=== PATIENT | male | born 1970 | race Caucasian/White ===

== ENCOUNTER 2016-11-26 11:39 | Emergency (ER) | payer MEDICARE, MEDICAID ==
[~2016-11-26] VITALS: Ht 180.3 cm; Wt 110.0 kg
[2016-11-26 11:41] VITALS: BP 156/69
[2016-11-26] MEDS ORDERED: HYDR-4133 PO (11:44)
[2016-11-26] MEDS ORDERED: AMLO2.5T2 PO (11:44)
[2016-11-26] MEDS ORDERED: LORA0.5T2 PO (11:44)
[2016-11-26] MEDS ORDERED: CARB200T PO (11:44)
[2016-11-26] MEDS ORDERED: METF500T PO (11:44)
[2016-11-26] MEDS ORDERED: GLIP5TAB12 PO (11:44)
== END 2016-11-26 17:31 | disposition left against medical advice (07) ==
LOC: ER 13:13
DX: F28 Other psychotic disorder not due to a substance or known physiological condition (principal); E11.9 Type 2 diabetes mellitus without complications; I12.9 Hypertensive chronic kidney disease with stage 1 through stage 4 chronic kidney disease, or unspecified chronic kidney disease; N28.89 Other specified disorders of kidney and ureter

== ENCOUNTER 2016-11-27 00:35 | Emergency (ER) | payer MEDICARE, MEDICAID ==
[~2016-11-27] VITALS: Ht 180.3 cm; Wt 110.2 kg
[~2016-11-27 00:35] MED LIST: AMLO2.5T2 PO; CARB200T PO; GLIP5TAB12 PO; HYDR-4133 PO; LORA0.5T2 PO; METF500T PO
[2016-11-27 05:23] LABS: BASOPHILS % 0.9 % (0.0-2.0); HEMATOCRIT. 36.9 % (42.0-52.0); HEMOGLOBIN. 12.9 g/dL (14.0-18.0); LYMPHOCYTES % 28.7 % (20.0-50.0); MEAN CORPUSCULAR HGB CONC 34.9 g/dL (31.0-37.0); MEAN CORPUSCULAR VOLUME 91.6 fL (80.0-94.0); MEAN PLATELET VOLUME 8.2 fl (7.4-10.4); MONOCYTES % 9.7 % (2.0-8.0); NEUTROPHILS % 58.7 % (40.0-76.0); PLATELET 205 x1000/uL (130-400); RED BLOOD CELL COUNT 4.03 mill/uL (4.7-6.1); RED CELL DISTRIBUTION WIDTH 14.4 % (11.6-14.6); WHITE BLOOD COUNT 8.6 x1000/uL (4.5-11.0)
[2016-11-27 05:37] LABS: ACETAMINOPHEN < 2 ug/mL (10-30); ANION GAP 10; CALCIUM 8.6 mg/dL (8.5-10.1); CARBON DIOXIDE 29 mEq/L (21-32); CHLORIDE 104 mEq/L (98-107); ETHANOL BLOOD < 10 mg/dL; INDEX HEMOLYSI 2 (1-3); INDEX ICTERIC 1 (1-4); INDEX LIPEMIC 1 (1-3); UREA NITROGEN BLOOD 20 mg/dL (7-21); eGFR > 60 mL/min (>60)
[2016-11-27 07:12] LABS: *AMPHETAMINES SCREEN URINE NEGATIVE (NEGATIVE); *BARBITURATES SCREEN URINE NEGATIVE (NEGATIVE); *BENZODIAZEPINES SCREEN URINE NEGATIVE (NEGATIVE); *COCAINE SCREEN URINE NEGATIVE (NEGATIVE); CANNABINOID URINE SCREEN NEGATIVE (NEGATIVE); ECSTASY MDMA SCREEN URINE NEGATIVE (NEGATIVE); METHADONE URINE SCREEN NEGATIVE (NEGATIVE); OPIATES URINE SCREEN NEGATIVE (NEGATIVE); PHENCYCLIDINE URINE SCREEN NEGATIVE (NEGATIVE)
[2016-11-27 12:34] VITALS: BP 120/88
== END 2016-11-27 14:25 ==
LOC: ER 00:36
DX: F20.9 Schizophrenia, unspecified (principal); R45.851 Suicidal ideations; I10 Essential (primary) hypertension; E11.9 Type 2 diabetes mellitus without complications; F17.200 Nicotine dependence, unspecified, uncomplicated; Z88.8 Allergy status to other drugs, medicaments and biological substances; Z79.899 Other long term (current) drug therapy
CPT/HCPCS: 36415; 80048; 80305; 80307; 80329; 85025; 99285; G0482

== ENCOUNTER 2017-11-22 11:50 | Emergency (ER) | payer OTHER, MEDICAID ==
[~2017-11-22] VITALS: Ht 172.7 cm; Wt 90.0 kg
[2017-11-22] MEDS ORDERED: LORAZEPAM 1MG TABLET PO ONE (12:15)
[2017-11-22] MEDS ORDERED: OLANZAPINE 5MG TABLET ODT PO ONE ×2 (12:15→23:30)
[2017-11-22] MEDS ORDERED: OLANZAPINE 10MG TABLET ODT PO ONE (12:30)
[2017-11-22] MEDS ORDERED: DIVALPROEX SODIUM 250MG ER TABLET PO ONE (12:30)
[2017-11-22 12:56] LABS: BASOPHILS % 0.2 % (0.0-2.0); EOSINOPHILS % 0.7 % (0.0-5.0); HEMATOCRIT. 36.3 % (42.0-52.0); HEMOGLOBIN. 12.7 g/dL (14.0-18.0); LYMPHOCYTES % 26.1 % (20.0-50.0); MEAN CORPUSCULAR HEMOGLOBIN 30.5 pg (28.0-32.0); MEAN CORPUSCULAR VOLUME 87.5 fL (80.0-94.0); MEAN PLATELET VOLUME 7.8 fl (7.4-10.4); MONOCYTES % 8.3 % (2.0-8.0); NEUTROPHILS % 64.7 % (40.0-76.0); PLATELET 314 x1000/uL (130-400); RED BLOOD CELL COUNT 4.15 mill/uL (4.7-6.1); RED CELL DISTRIBUTION WIDTH 13.6 % (11.6-14.6)
[2017-11-22 13:05] LABS: CHLORIDE 106 mEq/L (98-107)
[2017-11-22 13:10] LABS: ETHANOL BLOOD < 10 mg/dL
[2017-11-22 14:47] LABS: *AMPHETAMINES SCREEN URINE NEGATIVE (NEGATIVE); *BARBITURATES SCREEN URINE NEGATIVE (NEGATIVE); *BENZODIAZEPINES SCREEN URINE NEGATIVE (NEGATIVE); *COCAINE SCREEN URINE NEGATIVE (NEGATIVE); METHADONE URINE SCREEN NEGATIVE (NEGATIVE); OPIATES URINE SCREEN NEGATIVE (NEGATIVE); PHENCYCLIDINE URINE SCREEN NEGATIVE (NEGATIVE)
[2017-11-22 14:49] LABS: CANNABINOID URINE SCREEN NEGATIVE (NEGATIVE)
[2017-11-22] MEDS ORDERED: DIPHENHYDRAMINE 50MG/ML VIAL IM ONE (23:15)
[2017-11-23 09:53] VITALS: BP 117/77
== END 2017-11-23 09:57 | disposition home or self-care (01) ==
LOC: ER 12:35
DX: F23 Brief psychotic disorder (principal); F25.9 Schizoaffective disorder, unspecified; E11.9 Type 2 diabetes mellitus without complications; I10 Essential (primary) hypertension; D64.9 Anemia, unspecified; F17.210 Nicotine dependence, cigarettes, uncomplicated; Z91.14 Patient's other noncompliance with medication regimen; Z79.84 Long term (current) use of oral hypoglycemic drugs
CPT/HCPCS: 36415; 80048; 80305; 80307; 80329; 85025; 99284; G0482; J1200

== ENCOUNTER 2019-09-12 06:12 | Emergency (ER) | payer MEDICAID, MEDICARE, OTHER ==
[~2019-09-12] VITALS: Ht 180.3 cm; Wt 82.0 kg
[2019-09-12 10:35] LABS: BASOPHILS % 0.6 % (0.0-2.0); EOSINOPHILS % 1.7 % (0.0-5.0); HEMATOCRIT. 36.6 % (42.0-52.0); HEMOGLOBIN. 12.8 g/dL (14.0-18.0); LYMPHOCYTES % 22.7 % (20.0-50.0); MEAN CORPUSCULAR HEMOGLOBIN 31.5 pg (28.0-32.0); MEAN CORPUSCULAR VOLUME 90.4 fL (80.0-94.0); MEAN PLATELET VOLUME 7.9 fl (7.4-10.4); MONOCYTES % 7.3 % (2.0-8.0); NEUTROPHILS % 67.7 % (40.0-76.0); PLATELET 206 x1000/uL (130-400); RED BLOOD CELL COUNT 4.04 mill/uL (4.7-6.1); RED CELL DISTRIBUTION WIDTH 13.1 % (11.6-14.6)
[2019-09-12 10:41] LABS: CHLORIDE 105 mEq/L (98-107)
[2019-09-12 11:54] VITALS: BP 182/86
== END 2019-09-12 12:09 | disposition home or self-care (01) ==
LOC: ER 07:00
DX: I10 Essential (primary) hypertension (principal); E78.00 Pure hypercholesterolemia, unspecified; F20.9 Schizophrenia, unspecified; E11.9 Type 2 diabetes mellitus without complications; Z88.8 Allergy status to other drugs, medicaments and biological substances; Z88.1 Allergy status to other antibiotic agents
CPT/HCPCS: 36415; 80053; 82962; 85025; 93005; 99284